=== PATIENT | female | born 1985 | race American Indian/Alaskan Native ===

== ENCOUNTER 2016-12-07 18:58 | Observation (INO) | payer OTHER ==
[2016-12-07] MEDS ORDERED: Sodium Chloride 0.9% 1,000 ML IV ONE (19:40)
--- NOTE | 2016-12-07 19:40 | C.PDOC ---
History Of Present Illness Patient presents to the ED with complaints of having three syncopal episodes. Patient states the first episode occurred Th night and two more occurred in the bathroom finding herself on the floor. Patient denies any chest pain, palpitations, or shortness of breath. Time Seen by Provider: 12/07/16 19:40 Chief Complaint (Nursing): Syncope History Per: Patient History/Exam Limitations: no limitations Onset/Duration Of Symptoms: Days (first episode began 5 days ago on night) Current Symptoms Are (Timing): Still Present Number Of Syncopal Episodes: 3 Activity At Onset Of Symptoms: Standing Seizure Or Post-ictal Symptoms: None Fall Associated With With Symptoms: No Injury As Result Of Fall Severity: None Pain Scale Rating Of: 0 Recent travel outside of the [place]: No Additional History Per: Patient - Symptoms Of CVA Associated Symptoms: denies: Impaired Speech Recent Aspirin Use: No Current Coumadin Use?: No Recent Head Trauma: No Past Medical History Reviewed: Historical Data, Nursing Documentation, Vital Signs Vital Signs: Last Vital Signs Temp 98.8 F 12/07/16 19:23 Pulse 87 12/07/16 19:23 Resp 20 12/07/16 19:23 BP 112/74 12/07/16 19:23 Pulse Ox 100 12/07/16 20:48 Surgical History: Appendectomy Family History: States: No Known Family Hx - Social History Hx Alcohol Use: No Hx Substance Use: No - Immunization History Hx Tetanus Toxoid Vaccination: No Hx Influenza Vaccination: Yes Hx Pneumococcal Vaccination: No Review Of Systems Constitutional: Negative for: Fever, Chills ENT: Negative for: Mouth Swelling Cardiovascular: Negative for: Chest Pain, Palpitations Respiratory: Negative for: Cough, Shortness of Breath Gastrointestinal: Negative for: Nausea, Vomiting, Abdominal Pain, Diarrhea Genitourinary: Negative for: Incontinence Musculoskeletal: Negative for: Back Pain Skin: Negative for: Rash, Bruising Neurological: Negative for: Headache Psych: Negative for: Anxiety Physical Exam - Physical Exam Appears: Non-toxic, No Acute Distress, Other (No evident trauma nor seizure like activity noticed) Skin: Warm, Dry Head: Normacephalic Eye(s): bilateral: Normal Inspection, PERRL, EOMI Oral Mucosa: Moist Tongue: Normal Appearing, No Swelling, No Bite, No Laceration, No Bleeding Neck: Supple Chest: Symmetrical, No Deformity Cardiovascular: Rhythm Regular Respiratory: No Rales, No Rhonchi, No Wheezing Gastrointestinal/Abdominal: Soft, No Tenderness, No Distention, No Guarding, No Rebound Back: No CVA Tenderness Extremity: Normal ROM, No Tenderness Extremity: Bilateral: Atraumatic, Normal Color And Temperature Neurological/Psych: Oriented x3, Normal Speech, Normal Cognition, Normal Motor, Normal Sensation, Normal Reflexes Gait: Steady ED Course And Treatment - Laboratory Results Result Diagrams: 12/07/16 20:08 12/07/16 20:08 ECG: Interpreted By Me, Viewed By Me ECG Rhythm: Sinus Rhythm (89), Nonspecific Changes O2 Sat by Pulse Oximetry: 100 (room air ) Pulse Ox Interpretation: Normal - CT Scan/US CT HEAD W/O IV CONTRAST Other Rad Studies (CT/US): Read By Radiologist, Radiology Report Reviewed CT/US Interpretation: FINDINGS: Brain: Ventricles are normal in size and configuration. There is no midline shift. There is mild. prominence of sulci and gyri. There are no intra-axial or extra-axial mass lesions or areas of. hemorrhage. There are no abnormal fluid collections. Santos-white differentiation is maintained. Ventricles: See above. Bones: Cranial vault is intact. Soft tissues: unremarkable. Sinuses: There is no acute sinusitis. Ears and mastoids : Middle ears and mastoids are unremarkable. Orbits: Orbital contents are unremarkable. IMPRESSION: No acute intracranial abnormality Disposition Discussed With : Mahad Banegas Comment: accepted the pt on his service and took over the care at 9:13 PM Doctor Will See Patient In The: Hospital Counseled Patient/Family Regarding: Studies Performed, Diagnosis - Disposition Disposition: HOSPITALIZED Disposition Time: 19:40 Condition: FAIR - POA Present On Arrival: None - Clinical Impression Clinical Impression: Syncope - Scribe Statement The provider has reviewed the documentation as recorded by the Scribe Natalia Murguia All medical record entries made by the Scribe were at my direction and personally dictated by me. I have reviewed the chart and agree that the record accurately reflects my personal performance of the history, physical exam, medical decision making, and the department course for this patient. I have also personally directed, reviewed, and agree with the discharge instructions and disposition. Decision To Admit - Pt Status Changed To: Hospital Disposition Of: Observation - . Bed Request Type: Telemetry Admitting Physician: Mahad Banegas Patient Diagnosis: Syncope
[2016-12-07] MEDS ORDERED: Sodium Chloride 0.9% 1,000 ML ONE (20:04)
[2016-12-07 20:11] LABS: EOS # 0.1 K/uL (0.0-0.7); LYMPH # 1.6 K/uL (1.0-4.3)
[2016-12-07 20:17] LABS: BASO % 0.7 % (0.0-2.0); EOS % 0.9 % (0.0-4.0); HEMATOCRIT 31.2 % (34.0-47.0); LYMPH % 26.1 % (20.0-40.0); MEAN CELL VOLUME 87.3 fL (81.0-99.0); MEAN CORPUSCULAR HEMOGLOBIN 28.2 pg (27.0-31.0); MEAN CORPUSCULAR HGB CONC 32.4 g/dL (33.0-37.0); MEAN PLATELET VOLUME 8.7 fL (7.2-11.7); MONO # 0.4 K/uL (0.0-0.8); MONO % 6.5 % (0.0-10.0); RED CELL DISTRIBUTION WIDTH 14.1 % (11.5-14.5); WHITE BLOOD COUNT 6.2 K/uL (4.8-10.8)
[2016-12-07 20:19] LABS: INR 1.1
[2016-12-07 20:38] LABS: CHLORIDE 104 mmol/L (98-107)
[2016-12-07 20:39] LABS: POTASSIUM 4.1 mmol/L (3.6-5.2); SODIUM 141 mmol/L (132-148)
[2016-12-07 20:41] LABS: ALB/GLOB RATIO 1.2 (1.0-2.1); ALKALINE PHOSPHATASE 66 U/L (38-126); ALT/SGPT 20 U/L (9-52); AST/SGOT 48 U/L (14-36); BILIRUBIN,TOTAL 0.8 mg/dL (0.2-1.3); BLOOD UREA NITROGEN 16 mg/dL (7-17); CARBON DIOXIDE 24 mmol/L (22-30); GFR AFRICAN-AMERICAN > 60; GLUCOSE,RANDOM 89 mg/dL (65-105); TOTAL PROTEIN 7.8 g/dL (6.3-8.3)
[2016-12-07 20:42] LABS: CALCIUM 9.4 mg/dl (8.6-10.4)
--- NOTE | 2016-12-07 20:45 | CT ---
EXAM: CT Head Without Intravenous Contrast CLINICAL HISTORY: 31 years old, female; Signs and symptoms; Syncope and collapse; Additional info: R/O bleed, syncope TECHNIQUE: Axial computed tomography images of the head/brain without intravenous contrast. This CT exam was performed using one or more of the following dose reduction techniques: automated exposure control, adjustment of the mA and/or kV according to patient size, and/or use of iterative reconstruction technique. EXAM DATE/TIME: 12/07/2016 7:41 PM COMPARISON: There are no prior studies for comparison. FINDINGS: Brain: Ventricles are normal in size and configuration. There is no midline shift. There is mild prominence of sulci and gyri. There are no intra-axial or extra-axial mass lesions or areas of hemorrhage. There are no abnormal fluid collections. Santos-white differentiation is maintained. Ventricles: See above. Bones: Cranial vault is intact. Soft tissues: unremarkable Sinuses: There is no acute sinusitis. Ears and mastoids: Middle ears and mastoids are unremarkable Orbits: Orbital contents are unremarkable. IMPRESSION: No acute intracranial abnormality
[2016-12-07 21:00] LABS: RBC URINE 1 /hpf (0-3); URINE BILIRUBIN NEGATIVE (NEGATIVE); URINE BLOOD NEGATIVE (NEGATIVE); URINE COLOR Yellow (YELLOW); URINE GLUCOSE (UA) NORMAL (Normal); URINE KETONE NEGATIVE (NEGATIVE); URINE LEUKOCYTE ESTERASE NEG Leu/uL (Negative); URINE PROTEIN NEGATIVE (NEGATIVE); URINE UROBILINOGEN NORMAL mg/dL (0.2-1.0); WBC URINE < 1 /hpf (0-5)
[2016-12-08] MEDS: Nitroglycerin 2% Ointment Foilpak UD TOP SCH ×3 (00:01→12:27)
[2016-12-08 06:30] VITALS: BP 104/62; RESP 18; O2SAT 100
--- NOTE | 2016-12-08 07:21 | CP.PCM.CON ---
History of Present Illness - History of Present Illness History of Present Illness: Rec syncope preceding urination x 2 Past Patient History - Past Medical History & Family History Past Medical History?: Yes - Past Social History Smoking Status: Never Smoked - MUSCULOSKELETAL/RHEUMATOLOGICAL Hx Falls: No - PSYCHIATRIC Hx Substance Use: No - SURGICAL HISTORY Hx Appendectomy: Yes - ANESTHESIA Hx Anesthesia: Yes Hx Anesthesia Reactions: No Meds Allergies/Adverse Reactions: Allergies Allergy/AdvReac Type Severity Reaction Status Date / Time No Known Allergies Allergy Unverified 12/07/16 19:27 - Medications Medications: Current Medications Aspirin (Ecotrin) 81 mg PO DAILY [facility] Nitroglycerin (Nitro-Bid 2% Oint) 0.[address] [facility] Last Admin: 12/08/16 05:55 Dose: Not Given Pantoprazole Sodium (Protonix Ec Tab) 40 mg PO DAILY [facility] Rosuvastatin Calcium (Crestor) [address] [facility] Last Admin: 12/07/16 22:25 Dose: Not Given Physical Exam - Neurological Exam Additional comments: No long tract signs Results - Vital Signs Recent Vital Signs: Last Vital Signs Temp 98.4 F 12/08/16 06:28 Pulse 75 12/08/16 06:28 Resp 18 12/08/16 06:28 BP 104/62 12/08/16 06:28 Pulse Ox 100 12/08/16 06:28 - Labs Result Diagrams: 12/07/16 20:08 12/07/16 20:08 Assessment & Plan (1) Seizure activity as manifestation of blood transfusion reaction Status: Acute (2) Seizure Status: Acute - Assessment and Plan (Free Text) Plan: work up as per order If stable for 24 hrs after her work up she can go home F/U as an OP Cardio consult martha
[2016-12-08] MEDS ORDERED: Pantoprazole 40 mg EC Tab PO SCH (10:00)
[2016-12-08] MEDS ORDERED: Gadodiamide 287 mg/ml 20 ml IV ONE (10:16)
[2016-12-08 11:20] VITALS: PULSE 70
[2016-12-08 11:21] VITALS: TEMP 98
--- NOTE | 2016-12-08 11:29 | CARD ---
APPROVED REPORT EKG Measurement Heart [id number] <Conclusion> Normal sinus rhythm Normal ECG
--- NOTE | 2016-12-08 11:50 | MRI ---
PROCEDURE: MRI BRAIN WITH AND WITHOUT CONTRAST HISTORY: attention mesial temp lobe COMPARISON: None. TECHNIQUE: Multiplanar, multisequence MR images of the brain were obtained with and without intravenous contrast enhancement. FINDINGS: HEMORRHAGE: None DWI: No evidence of an acute or early subacute infarction. BRAIN PARENCHYMA: No mass,mass effect or edema. No atrophy or chronic microvascular ischemic changes. ENHANCEMENT: No abnormal intracranial enhancement. VENTRICLES: Unremarkable. No hydrocephalus. CRANIUM: Unremarkable. ORBITS: Grossly unremarkable. PARANASAL SINUSES/MASTOIDS: Clear VASCULAR SYSTEM: Skull base flow voids intact. OTHER FINDINGS: None . IMPRESSION: Unremarkable pre and post contrast enhanced MRI of the brain.
--- NOTE | 2016-12-08 12:03 | MRI ---
PROCEDURE: Magnetic Resonance Angiography Brain HISTORY: Syncope COMPARISON: None available. TECHNIQUE: 3D time of flight MR angiography of the intracranial arteries was performed. Rotating maximum intensity projection images were generated. FINDINGS: INTERNAL CEREBRAL ARTERIES: Unremarkable. The skull base, petrous, cavernous and supraclinoid segments are bilaterally widely patient. ANTERIOR CEREBRAL ARTERIES: Unremarkable. A1 and A2 segments are widely patent. Smaller distal branches unremarkable, as visualized. MIDDLE CEREBRAL ARTERIES: Unremarkable. M1 and M2 segments are widely patent. Perisylvian branches grossly symmetric. POSTERIOR CIRCULATION: Basilar Artery: Unremarkable. Distal Vertebral Arteries: Unremarkable. Posterior Cerebral Arteries: Unremarkable. Posterior Inferior Cerebellar Arteries: Unremarkable. ANEURYSM/ VASCULAR MALFORMATIONS: None. OTHER FINDINGS: None. IMPRESSION: Unremarkable MR angiography of the brain.
--- NOTE | 2016-12-08 12:41 | CP.PCM.PN ---
Subjective - Date & Time of Evaluation Date of Evaluation: 12/08/16 Time of Evaluation: 12:37 - Subjective Subjective: AMA note Patient refusing to sign AMA form. Patient is adamant on leaving hospital against medical advice. Risks of leaving discussed with patient in great detail by house resident, MIRNA, nursing staff. Patient verbalizes that she understands but continues to refuse signing paperwork. Attending and nurse senior manager mergers & acquisitions notified. Objective - Vital Signs/Intake and Output Vital Signs (last 24 hours): Temp Pulse Resp BP Pulse Ox 98 F 70 18 104/62 100 12/08/16 08:00 12/08/16 10:00 12/08/16 06:28 12/08/16 06:28 12/08/16 06:28 Intake and Output: 12/08/16 12/08/16 06:59 18:59 Intake Total 0 Balance 0 - Medications Medications: Current Medications Aspirin (Ecotrin) 81 mg PO DAILY [facility] Last Admin: 12/08/16 11:47 Dose: Not Given Nitroglycerin (Nitro-Bid 2% Oint) 0.5 ea TOP Q6 [facility] Last Admin: 12/08/16 12:27 Dose: Not Given Pantoprazole Sodium (Protonix Ec Tab) 40 mg PO DAILY [facility] Last Admin: 12/08/16 11:47 Dose: Not Given Rosuvastatin Calcium (Crestor) 10 mg PO HS [facility] Last Admin: 12/07/16 22:25 Dose: Not Given - Labs Labs: PT 12.0 SECONDS (9.7-12.2) 12/07/16 20:08 INR 1.1 12/07/16 20:08 APTT 32 SECONDS (21-34) 12/07/16 20:08
--- NOTE | 2016-12-08 16:17 | CP.PCM.HP ---
History of Present Illness - History of Present Illness History of Present Illness: 31 yr old female with PMHX of anemia , presented to the office after she passed out in the BR and ht her head . Patient states the first episode occurred night and two more occurred in the bathroom finding herself on the floor. Patient denies any chest pain, palpitations, or shortness of breath. Pt was referred to ER for further evaluation Present on Admission - Present on Admission Any Indicators Present on Admission: Yes History of DVT/PE: No History of Uncontrolled Diabetes: No Urinary Catheter: No Decubitus Ulcer Present: No History Surgical Site Infection Following: None Review of Systems - Constitutional Constitutional: As Per HPI, Headache. absent: Anorexia, Chills, Daytime Sleepiness, Excessive Sweating, Fatigue, Fever, Frequent Falls, Increased Appetite, Lethargy, Malaise, Night Sweats, Snoring, Sleep Apnea, Weight Gain, Weight Loss, Weakness, Other - EENT Nose/Mouth/Throat: As Per HPI - Cardiovascular Cardiovascular: As Per HPI - Respiratory Respiratory: As Per HPI - Gastrointestinal Gastrointestinal: As Per HPI, Abdominal Pain (epigastric) - Musculoskeletal Musculoskeletal: As Per HPI Past Patient History - Past Medical History & Family History Past Medical History?: Yes - Past Social History Smoking Status: Never Smoked - MUSCULOSKELETAL/RHEUMATOLOGICAL Hx Falls: No - PSYCHIATRIC Hx Substance Use: No - SURGICAL HISTORY Hx Appendectomy: Yes - ANESTHESIA Hx Anesthesia: Yes Hx Anesthesia Reactions: No Meds Allergies/Adverse Reactions: Allergies Allergy/AdvReac Type Severity Reaction Status Date / Time No Known Allergies Allergy Unverified 12/07/16 19:27 Physical Exam - Head Exam Head Exam: ATRAUMATIC Additional comments: mild tenderness to the RT side of the face - Neck Exam Neck exam: Positive for: Full Rom - Respiratory Exam Respiratory Exam: Clear to Auscultation Bilateral - Cardiovascular Exam Cardiovascular Exam: REGULAR RHYTHM - GI/Abdominal Exam GI & Abdominal Exam: Tenderness - Rectal Exam Rectal Exam: Deferred - Extremities Exam Extremities exam: Positive for: normal inspection - Back Exam Back exam: NORMAL INSPECTION - Neurological Exam Neurological exam: Normal Gait - Psychiatric Exam Psychiatric exam: Anxious ( pt concerned about fthe fact of pssing out ) Results - Vital Signs Recent Vital Signs: Last Vital Signs Temp 98 F 12/08/16 08:00 Pulse 70 12/08/16 10:00 Resp 18 12/08/16 06:28 BP 104/62 12/08/16 06:28 Pulse Ox 100 12/08/16 06:28 - Labs Result Diagrams: 12/07/16 20:08 12/07/16 20:08 - EKG Data EKG shows normal: Sinus rhythm Assessment & Plan (1) Syncope Status: Acute - Assessment and Plan (Free Text) Plan: MRI ECHO AROTD DOPPLER . NEURO CONSULT WITH DR. SAWANT CARDIOLOGY CONSULT WITH DR. GLORIA WILL F/U WITH RECOMMENDATION
[2016-12-08 17:33] LABS: RAPID PLASMA REAGIN NONREACTIVE (NONREACTIVE)
--- NOTE | 2016-12-08 20:47 | CARD ---
APPROVED REPORT EXAM: Two-dimensional and M-mode echocardiogram with Doppler and color Doppler. Other Information Quality : GoodRhythm : NSR INDICATION Syncope ANEMIA M-Mode DIMENSIONS RVDd2.03 (2.1-3.2cm)Left Atrium (MM)3.44 (2.5-4.0cm) IVSd0.79 (0.7-1.1cm)Aortic Root2.85 (2.2-3.7cm) LVDd4.71 (4.0-5.6cm)Aortic Cusp Exc.2.03 (1.5-2.0cm) PWd0.76 (0.7-1.1cm)FS (%) 36 % LVDs3.02 (2.0-3.8cm)LVEF (%)65 (>50%) Mitral Valve MV E Zoztlhje14.2cm/sMV A Rvjsxqyf93.4cm/sE/A ratio1.4 TDI E/Lateral E'0.0E/Medial E'0.0 Tricuspid Valve TR Peak Rlxjfmpj790yt/sTR Peak Gr.93ehHqJYYY98mhAx <Conclusion> normal size la,lv,ra,rv. normal lv wall motion,thickness,systolic & diastolic function with lvef of 65-70%. normal aortic,mitral,tv & pv. trace tr.pi. no pericardial effusion. nomral size aortic root.
== END 2016-12-08 12:45 | disposition left against medical advice (07) ==
LOC: C.ER 18:58 → C.9E 21:12 → C.6T 22:14 → C.9E 22:41 → C.9I 12-08 05:32
PROVIDERS: ADMIT Specialist; ATTEND Specialist
DX: R55 Syncope and collapse (principal); D64.9 Anemia, unspecified
CPT/HCPCS: 70450; 70544; 70553; 80053; 81001; 84703; 85025; 85610; 85730; 86038; 86592; 86850; 86900; 87081; 93005; 93306; 95812; 96360; G0378; J7040